=== PATIENT | female | born 1970 | race Caucasian/White ===

== ENCOUNTER → 2023-06-16 14:57 | Outpatient (REF) | payer OTHER, SELFPAY | LOC: WDC 14:57 | PROVIDERS: ATTENDING PHYSICIAN Physician Assistant | DX: Z12.31 Encounter for screening mammogram for malignant neoplasm of breast (principal) | CPT/HCPCS: 77063; 77067 ==

== ENCOUNTER → 2024-06-19 11:40 | Outpatient (REF) | payer OTHER, SELFPAY | LOC: WDC 11:40 | PROVIDERS: ATTENDING PHYSICIAN Internal Medicine | DX: Z12.31 Encounter for screening mammogram for malignant neoplasm of breast (principal) | CPT/HCPCS: 77063; 77067 ==